=== PATIENT | female | born 1970 | race Caucasian/White ===

== ENCOUNTER 2023-01-31 10:16 | Emergency (ER) | payer OTHER, SELFPAY ==
[2023-01-31 10:16] VITALS: BP 167/91; PULSE 90; RESP 12; TEMP 36.6; O2SAT 96
--- NOTE | 2023-01-31 10:35 | ED.EAR ---
HPI - Ear Problem General Chief complaint: Ear Stated complaint: left ear pain. decreased hearing Time Seen by Provider: 01/31/23 10:21 Source: patient and family Mode of arrival: ambulatory Limitations: no limitations History of Present Illness HPI Narrative: this is a 52-year-old female who presents with left ear pressure, currently no drainage does have left-sided facial pressure in maxillary and frontal sinus area with palpation, patient has no nasal discharge no discharge from her ear patient feels subjective fevers, with no shortness of breath no audible wheezing. Recently has seen her ENT and is currently on clindamycin antibiotics. Is currently no nausea or vomiting patient is afebrile in the ER. MD Complaint: ear pain Location: left ear Duration: constant Severity: mild Relieving factors: nothing Exacerbating factors: nothing Related Data Allergies Allergy/AdvReac Type Severity Reaction Status Date / Time prednisone AdvReac Mild AGITATION Verified 01/27/23 14:00 Review of Systems Review of Systems: All systems reviewed & are unremarkable except as noted in HPI and below PMFSH Past Medical History Medical History Essential (primary) hypertension Hypothyroid Family History Family History Mother Hypertension Social History Social History Smoking packs per day: 1 Smoking cigarettes per day: 20.0 Years smoked: 15 Smoking pack-years: 15.00 Smoking status: Former smoker Second hand tobacco smoke exposure: No Smoking end date: 11/29/19 Alcohol intake: current Alcohol use details: Socially Substance use: never Substance use type: does not use Living arrangements: with family Occupation/Education: occupation Gender identity (if verbalized by the patient): Female Sexual Orientation (if Verbalized by the Patient): Straight or Heterosexual Spiritual care concerns: No Exam Const: General: healthy appearing and no acute distress Nutritional Appearance: well nourished Orientation/consciousness: patient oriented x3 HENMT: Ears: TM abnormal ( Dullness with visualization) Other: left frontal and maxillary sinus tenderness to palpation with a swollen red left turbinate Eyes: Conjunctivae: conjunctivae normal EOM: EOMs intact bilaterally Direct Ophthalmoscopy: no photophobia Neck: Neck: normal visual inspection, no lymphadenopathy and no meningeal signs Chest: Chest palpation & inspection: normal inspection of the chest Resp: Effort & Inspection: normal respiratory effort Auscultation: clear to auscultation bilaterally Cardio: Rate: regular rate Rhythm: regular rhythm Back/Spine/Pelvis: Back: no CVA tenderness Course Course Emergency Course: advised patient to continue her current antibiotic clindamycin as prescribed by her ENT, and continue her Flonase and will be sending prescription to her pharmacy. Vital Signs Vital signs: Vital Signs Temperature 36.6 C 01/31/23 10:16 Pulse Rate 90 01/31/23 10:16 Respiratory Rate 12 01/31/23 10:16 Blood Pressure 167/91 H 01/31/23 10:16 Pulse Oximetry 96 01/31/23 10:16 Oxygen Delivery Room Air 01/31/23 10:16 Temperature 36.6 C 01/31/23 10:16 Pulse Rate 90 01/31/23 10:16 Respiratory Rate 12 01/31/23 10:16 Blood Pressure 167/91 H 01/31/23 10:16 Pulse Oximetry 96 01/31/23 10:16 Oxygen Delivery Room Air 01/31/23 10:16 Medical Decision Making Vital Signs Vital Signs: Vital Signs Temperature 36.6 C 01/31/23 10:16 Pulse Rate 90 01/31/23 10:16 Respiratory Rate 12 01/31/23 10:16 Blood Pressure 167/91 H 01/31/23 10:16 Pulse Oximetry 96 01/31/23 10:16 Oxygen Delivery Room Air 01/31/23 10:16 Temperature 36.6 C 01/31/23 10:16 Pulse Rate 90 01/31/23 10:16 Respiratory Rate 12
== END 2023-01-31 10:48 | disposition home or self-care (01) ==
PROVIDERS: Emergency Provider Emergency Medicine; PCP Family Medicine Adolescent Medicine
DX: J01.00 Acute maxillary sinusitis, unspecified (principal); I10 Essential (primary) hypertension; E03.9 Hypothyroidism, unspecified; Z87.891 Personal history of nicotine dependence
CPT/HCPCS: 99283

== ENCOUNTER 2024-04-17 13:48 | Emergency (ER) | payer OTHER, SELFPAY ==
--- NOTE | ~2024-04-17 | XR_ITS ---
EXAM: XR ankle RT min 3V, XR foot RT min 3V DATE: 04/17/2024 14:35 HISTORY: Fall on ice, Lateral Rt. foot pain . COMPARISON: None available. FINDINGS: Normal mineralization. No fracture or dislocation. No lytic or blastic lesion. Moderate Ac hilles and plantar enthesopathy. Small os navicularis No erosion or periosteal change. Soft tissues w ithin normal limits. IMPRESSION: No acute osseous finding in the right ankle or foot. Reviewed, dictated and finalized at location K. [employer] DIRECT[employer] IMPRESSION: No acute osseous finding in the right ankle or foot.
[2024-04-17 13:49] VITALS: BP 176/94; PULSE 87; RESP 20; TEMP 37.1; O2SAT 99
--- NOTE | 2024-04-17 13:53 | ED.FALL ---
HPI - Fall General Chief Complaint: Extremity Injury, Lower Stated Complaint: right foot injury Time Seen by Provider: 04/17/24 13:53 Source: patient and family Mode of arrival: ambulatory Limitations: no limitations History of Present Illness HPI Narrative: 53 YEARS OLD WHITE FEMALE TWISTED HER RIGHT FOOT/ ANKLE ON ICE FEW HOURS PRIOR TO ARRIVAL TO THE EMERGENCY ROOM. SHE DENIES OTHER INJURIES. Related Data Allergies Allergy/AdvReac Type Severity Reaction Status Date / Time prednisone AdvReac Mild AGITATION Verified 10/22/23 15:08 Review of Systems Review of Systems: All systems reviewed & are unremarkable except as noted in HPI and below PMFSH Past Medical History Medical History Hypothyroid Essential (primary) hypertension Family History Family History Mother Hypertension Social History Social History Social History: Caffeine-little Smoking packs per day: 1 Smoking cigarettes per day: 20.0 Years smoked: 15 Smoking pack-years: 15.00 Smoking status: Former smoker Second hand tobacco smoke exposure: No Smoking end date: 11/29/19 Alcohol intake: current Alcohol use details: Socially Substance use: never Substance use type: does not use Living arrangements: with family Occupation/Education: occupation Gender identity (if verbalized by the patient): Female Sexual Orientation (if Verbalized by the Patient): Straight or Heterosexual Spiritual care concerns: No Exam Narrative: GENERAL APPEARANCE: WELL-DEVELOPED, WELL-NOURISHED SKIN: NORMAL COLOR HEAD: NORMOCEPHALIC, NONTRAUMATIC NECK: SUPPLE, NONTENDER C VASCULAR: NORMAL PERIPHERAL PULSES, NORMAL CAPILLARY REFILL. MUSCULOSKELETAL: MILD DIFFUSE TENDERNESS RIGHT LATERAL MALLEOLUS, NO DEFORMITY, SWELLING, BRUISES. 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, NO GROSS MOTOR DEFICIT Course Vital Signs Vital signs: Vital Signs Temperature 37.1 C 04/17/24 13:49 Pulse Rate 87 04/17/24 13:49 Respiratory Rate 20 04/17/24 13:49 Blood Pressure 176/94 H 04/17/24 13:49 Pulse Oximetry 99 04/17/24 13:49 Oxygen Delivery Room Air 04/17/24 13:49 Temperature 37.1 C 04/17/24 13:49 Pulse Rate 87 04/17/24 13:49 Respiratory Rate 20 04/17/24 13:49 Blood Pressure 176/94 H 04/17/24 13:49 Pulse Oximetry 99 04/17/24 13:49 Oxygen Delivery Room Air 04/17/24 13:49 MDM - Fall MDM Narrative Medical decision making narrative: AND X-RAY RIGHT ANKLE/ FOOT SHOWED NO ACUTE OSSEOUS ABNORMALITY Imaging Data Radiologist's impression: Impressions Ankle X-Ray 04/17/24 14:50 IMPRESSION: No acute osseous finding in the right ankle or foot. Foot X-Ray 04/17/24 14:50 IMPRESSION: No acute osseous finding in the right ankle or foot. Critical Care Time Critical Care Time Critical Care Time: No Discharge Plan Discharge Clinical Impression: Sprain of ankle, right Patient Disposition: Home, Self-Care Condition: Stable Instructions: Ankle Sprain (ED) Additional Instructions: RETURN IF SYMPTOMS ARE WORSENING , CALL YOUR FAMILY PHYSICIAN FOR APPOINTMENT, TAKE TYLENOL , IBUPROFEN NEEDED FOR ACHES AND PAIN, CONTINUE HOME MEDICATIONS. A CRUTCHES NEEDED Patient Language: Cypriot Prescriptions: No Action mupirocin 2 % ointment 1 applic topical BID Qty: 15 1RF clotrimazole 1 % solution 1 applic topical TID Qty: 30 1RF clobetasol 0.05 % cream 1 applic topical BID Qty: 30 1RF clobetasol 0.05 % cream 1 applic topical BID 14 Days Qty: 15 1RF lisinopril 10 mg tablet 10 mg PO DAILY Qty: 90 2RF levothyroxine 75 mcg tablet 75 mcg PO DAILY Qty: 90 3RF diclofenac sodium 75 mg tablet,delayed release (DR/EC) 75 mg PO BID Qty: 60 3RF atorvastatin 40 mg tablet 40 mg PO DAILY Qty: 90 2RF Follow-up/Referrals: UNKNOWN,DOCTOR [Non-Staff] -
[2024-04-17] MEDS: IBUPROFEN 600 MG TABLET PO (14:34)
[2024-04-17] MEDS: ACETAMINOPHEN 325 MG TABLET 650 MG PO (14:34)
== END 2024-04-17 15:05 | disposition home or self-care (01) ==
PROVIDERS: Emergency Provider Emergency Medicine; PCP Family Medicine Adolescent Medicine
DX: S93.401A Sprain of unspecified ligament of right ankle, initial encounter (principal); I10 Essential (primary) hypertension; E03.9 Hypothyroidism, unspecified; Z87.891 Personal history of nicotine dependence; X50.0XXA Overexertion from strenuous movement or load, initial encounter
CPT/HCPCS: 29515; 73610; 73630; 99283; A9270; L4350

== ENCOUNTER 2024-08-14 18:06 | Emergency (ER) | payer OTHER, SELFPAY ==
[2024-08-14 18:08] VITALS: BP 164/87; PULSE 68; RESP 20; TEMP 36.8; O2SAT 98
--- NOTE | 2024-08-14 18:10 | ED.GENADULT ---
HPI - General Adult General Chief complaint: Skin/Abscess/Foreign Body Stated complaint: tick removed right upper thigh, redness History of Present Illness HPI narrative: Ainsley is a 54F with a PMH of HLD, HTN, hypothyroidism that presented to the ED with spreading erythema around a tick bite. She pulled the tick off yesterday. Related Data Allergies Allergy/AdvReac Type Severity Reaction Status Date / Time prednisone AdvReac Mild AGITATION Verified 08/14/24 18:21 Review of Systems Review of Systems: All systems reviewed & are unremarkable except as noted in HPI and below PMFSH Past Medical History Medical History Carotidynia Hypothyroid Essential (primary) hypertension Family History Family History Mother Hypertension Social History Social History Social History: Caffeine-little Smoking packs per day: 1 Smoking cigarettes per day: 20.0 Years smoked: 15 Smoking pack-years: 15.00 Smoking status: Former smoker Second hand tobacco smoke exposure: No Smoking end date: 11/29/19 Alcohol intake: current Alcohol use details: Socially Substance use: never Substance use type: does not use Living arrangements: with family Occupation/Education: occupation Gender identity (if verbalized by the patient): Female Sexual Orientation (if Verbalized by the Patient): Straight or Heterosexual Spiritual care concerns: No Exam Const: General: cooperative, healthy appearing, comfortable, no acute distress, well developed, alert, awake and Physically active Orientation/consciousness: oriented to person, oriented to place and oriented to time HENMT: Head: normal to inspection, normocephalic and atraumatic Ears: hearing grossly normal bilaterally and external ears normal Face/Nose/Sinus: Normal external nose present Eyes: General: appearance normal, both eyes and all related structures Periorbital: periorbital findings normal Sclera: sclerae normal Pupils: Equal, round and reactive pupils present Neck: Neck: normal visual inspection Chest: Chest palpation & inspection: normal inspection of the chest Resp: Effort & Inspection: normal respiratory effort, able to speak in complete sentences and no respiratory distress Cardio: Jugular venous distension: no JVD Skin: General skin exam: normal color and no rashes or lesions noted Neuro: General: oriented to person, oriented to place and oriented to time Cranial nerves: Yes Equal, round and reactive pupils present Extrem: General: normal to inspection Other: -Right medial thigh has a 1cm ulcer and several cm of surrounding erythema Course Course Emergency Course: doxycycline to prevent tick borne illness or cellulitis Vital Signs Vital signs: Vital Signs Temperature 98.2 F 08/14/24 18:08 Pulse Rate 68 08/14/24 18:08 Respiratory Rate 20 08/14/24 18:08 Blood Pressure 164/87 H 08/14/24 18:08 Pulse Oximetry 98 08/14/24 18:08 Oxygen Delivery Room Air 08/14/24 18:08 Temperature 98.2 F 08/14/24 18:08 Pulse Rate 68 08/14/24 18:08 Respiratory Rate 20 08/14/24 18:08 Blood Pressure 164/87 H 08/14/24 18:08 Pulse Oximetry 98 08/14/24 18:08 Oxygen Delivery Room Air 08/14/24 18:08 Medical Decision Making Vital Signs Vital Signs: Vital Signs Temperature 98.2 F 08/14/24 18:08 Pulse Rate 68 08/14/24 18:08 Respiratory Rate 20 08/14/24 18:08 Blood Pressure 164/87 H 08/14/24 18:08 Pulse Oximetry 98 08/14/24 18:08 Oxygen Delivery Room Air 08/14/24 18:08 Temperature 98.2 F 08/14/24 18:08 Pulse Rate 68 08/14/24 18:08 Respiratory Rate 20 08/14/24 18:08 Blood Pressure 164/87 H 08/14/24 18:08 Pulse Oximetry 98 08/14/24 18:08 Oxygen Delivery Room Air 08/14/24 18:08 Discharge Plan Discharge Clinical Impression: Tick bite Patient Disposition: Home Condition: Stable Instructions: Tick Bite (ED) Patient Language: Korean Prescriptions: New doxycycline hyclate 100 mg tablet 100 mg PO DAILY Qty: 20 0RF doxycycline hyclate 100 mg tablet 100 mg PO BID Qty: 20 0RF No Action mupirocin 2 % ointment 1 applic topical BID Qty: 15 1RF clotrimazole 1 % solution 1 applic topical TID Qty: 30 1RF clobetasol 0.05 % cream 1 applic topical BID Qty: 30 1RF levothyroxine 75 mcg tablet 75 mcg PO DAILY Qty: 90 3RF atorvastatin 40 mg tablet 40 mg PO DAILY Qty: 90 2RF lisinopril 10 mg tablet See Rx Instructions .ROUTE .COMPLEX Qty: 30 2RF Dose Instruction: TAKE 1 TABLET BY MOUTH EVERY DAY Rx Instructions: TAKE 1 TABLET BY MOUTH EVERY DAY Follow-up/Referrals: Teresa Dick, RD, LDN [Primary Care Provider] -
[2024-08-14] MEDS: DOXYCYCLINE HYCLATE 100 MG TABLET PO (18:23)
== END 2024-08-14 18:26 | disposition home or self-care (01) ==
LOC: CHSED 18:24
PROVIDERS: Emergency Provider Family Medicine
DX: S70.361A Insect bite (nonvenomous), right thigh, initial encounter (principal); E78.5 Hyperlipidemia, unspecified; I10 Essential (primary) hypertension; E03.9 Hypothyroidism, unspecified; Z87.891 Personal history of nicotine dependence; W57.XXXA Bitten or stung by nonvenomous insect and other nonvenomous arthropods, initial encounter
CPT/HCPCS: 99283; A9270

== ENCOUNTER 2024-10-17 07:47 | Outpatient (CLI) | payer OTHER, SELFPAY ==
--- NOTE | ~2024-10-17 | MM_ITS ---
EXAMINATION: MM screening pepito BI w cari HISTORY: Screening TECHNIQUE: Craniocaudal and mediolateral oblique 3-D tomosynthesis images were obtained and synthetic 2-D images were generated. CAD analysis was submitted and interpreted. COMPARISON: Comparison to multiple prior studies sequentially, with oldest reviewed study dated 12/07. BREAST PARENCHYMAL COMPOSITION: There are scattered areas of fibroglandular density. FINDINGS: There is no evidence of suspicious mass, calcification, or architectural distortion to sug gest malignancy in either breast. There has been no suspicious interval change. IMPRESSION: 1. No mammographic evidence of malignancy. 2. Recommend routine screening mammography in one year. BI-RADS Category 1: Negative Reviewed, dictated and finalized at location B.
== END 2024-10-17 07:48 | disposition home or self-care (01) ==
PROVIDERS: PCP Family Medicine Adolescent Medicine; Visit Provider Family Medicine Adolescent Medicine
DX: Z12.31 Encounter for screening mammogram for malignant neoplasm of breast (principal)
CPT/HCPCS: 77063; 77067